=== PATIENT | male | born 1995 ===

== ENCOUNTER 2021-09-03 23:54 | Inpatient (IN) | payer SELFPAY ==
[2021-09-04 00:13] LABS: #Eosinphils 0.1 thou/uL (0.0-0.7); #Lymphocytes 1.5 thou/uL (1.20-3.40); #Monocytes 0.5 thou/uL (0.11-0.59); #Neutrophils 3.5 thou/uL (1.40-6.50); %Basophils 0.8 % (0.0-1.0); %Eosinophils 1.9 % (0.0-10.0); %Lymphocytes 26.3 % (21.0-51.0); %Monocytes 9.5 % (0.0-10.0); %Neutrophils 61.5 % (42.0-75.0); Hemoglobin 15.3 g/dL (14.0-18.0); Mean Corpuscular HGB CONC 32.7 g/dL (32.0-36.0); Mean Corpuscular Hemoglobin 31.3 pg (27.0-31.0); Mean Corpuscular Volume 95.6 fL (78.0-98.0); Mean Platelet Volume 7.1 fL (7.4-10.4); Platelet Count 197 thou/uL (130-400); RBC Distribution Width 11.7 % (11.5-14.5); Red Blood Cell (RBC) Count 4.89 mill/uL (4.70-6.10); White Blood Cell (WBC) Count 5.6 thou/uL (4.8-10.8)
[2021-09-04] MEDS ORDERED: Ondansetron PF 4 MG/2 ML Vial IVP PRN (00:25)
[2021-09-04] MEDS ORDERED: Morphine 2 MG/ML VIAL SLOW IVP STA (00:41)
[2021-09-04 00:42] LABS: ALT (SGPT) 12 U/L (8-55); AST (SGOT) 16 U/L (5-34); Albumin 4.5 g/dL (3.5-5.0); Alkaline Phosphatase 73 U/L (40-110); Anion Gap 15 mmol/L (10-20); BUN (Urea Nitrogen) 8 mg/dL (8.9-20.6); Bilirubin, Total 0.3 mg/dL (0.2-1.2); Calc. Creatinine Clearance 0 mL/min (70-130); Calcium 9.3 mg/dL (7.8-10.44); Carbon Dioxide 18 mmol/L (22-29); Chloride 110 mmol/L (98-107); Globulin 2.5 g/dL (2.4-3.5); Glucose 148 mg/dL (70-105); INR-International Normal Ratio 0.9; Potassium 3.7 mmol/L (3.5-5.1); Prothrombin Time 12.4 sec (12.0-14.7); Sodium 139 mmol/L (136-145)
[2021-09-04] MEDS ORDERED: Morphine 4 MG/ML VIAL ONE ×2 (00:42→02:58)
[2021-09-04] MEDS ORDERED: Acetaminophen 500 MG TAB PO PRN (00:44)
[2021-09-04] MEDS ORDERED: traMADol HCl 50 MG TAB PO PRN (00:44)
[2021-09-04] MEDS ORDERED: Lidocaine 1% (PF) 30 ML VIAL ONE (00:45)
[2021-09-04 00:53] LABS: PTT 22.6 sec (22.9-36.1)
[2021-09-04] MEDS ORDERED: Sodium Chloride 0.9% 1,000 ML IV SCH ×2 (01:00→04:00)
[2021-09-04] MEDS ORDERED: Fentanyl 100 MCG/2 ML VIAL ONE (01:05)
[2021-09-04] MEDS ORDERED: Midazolam HCl 2 mg/2 ml Vial ONE (01:05)
[2021-09-04 01:23] LABS: Bilirubin Negative (Negative); Blood, Urine Negative (Negative); Clarity Clear (Clear); Glucose, Urine (Dipstick) Normal (Negative); Ketone, Urine Negative (Negative); Leukocyte Negative Leu/uL (Negative); Nitrite Negative (Negative); Protein, Urine (Dipstick) Negative (Neg-Trace); Specific Gravity, Urine 1.024 (1.002-1.036); Urobilinogen Normal mg/dL (Less than 2)
[2021-09-04] MEDS ORDERED: Morphine 4 MG/ML VIAL SLOW IVP PRN (02:30)
[2021-09-04 03:11] LABS: SARS-CoV-2 NAA Rapid Test Not Detected (NotDetected)
[2021-09-04] MEDS: Cyclobenzaprine 10 MG TAB PO PRN ×2 (03:51→04:15)
[2021-09-04 04:06] LABS: #Lymphocytes 0.7 thou/uL (1.20-3.40); #Monocytes 1.1 thou/uL (0.11-0.59); #Neutrophils 9.3 thou/uL (1.40-6.50); %Basophils 0.1 % (0.0-1.0); %Eosinophils 0.3 % (0.0-10.0); %Lymphocytes 6.3 % (21.0-51.0); %Monocytes 9.7 % (0.0-10.0); %Neutrophils 83.6 % (42.0-75.0); Hemoglobin 13.9 g/dL (14.0-18.0); Mean Corpuscular HGB CONC 33.4 g/dL (32.0-36.0); Mean Corpuscular Hemoglobin 31.9 pg (27.0-31.0); Mean Corpuscular Volume 95.5 fL (78.0-98.0); Mean Platelet Volume 6.8 fL (7.4-10.4); Platelet Count 165 thou/uL (130-400); RBC Distribution Width 11.7 % (11.5-14.5); Red Blood Cell (RBC) Count 4.35 mill/uL (4.70-6.10); White Blood Cell (WBC) Count 11.2 thou/uL (4.8-10.8)
[2021-09-04 04:25] LABS: Lactic Acid 1.6 mmol/L (0.5-2.2)
[2021-09-04 04:29] LABS: Anion Gap 13 mmol/L (10-20); BUN (Urea Nitrogen) 7 mg/dL (8.9-20.6); Calc. Creatinine Clearance 135 mL/min (70-130); Calcium 8.4 mg/dL (7.8-10.44); Carbon Dioxide 18 mmol/L (22-29); Chloride 112 mmol/L (98-107); Glucose 107 mg/dL (70-105); Magnesium 1.8 mg/dL (1.6-2.6); Phosphorus 2.7 mg/dL (2.3-4.7); Potassium 3.9 mmol/L (3.5-5.1); Sodium 139 mmol/L (136-145)
[2021-09-04] MEDS ORDERED: traMADol HCl 50 MG TAB PO SCH (06:00)
[2021-09-04 07:31] LABS: #Lymphocytes 0.7 thou/uL (1.20-3.40); #Neutrophils 6.9 thou/uL (1.40-6.50); %Basophils 0.1 % (0.0-1.0); %Eosinophils 0.5 % (0.0-10.0); %Lymphocytes 8.6 % (21.0-51.0); %Monocytes 11.4 % (0.0-10.0); %Neutrophils 79.4 % (42.0-75.0); Hemoglobin 13.7 g/dL (14.0-18.0); Mean Corpuscular HGB CONC 34.2 g/dL (32.0-36.0); Mean Corpuscular Hemoglobin 32.8 pg (27.0-31.0); Mean Corpuscular Volume 95.9 fL (78.0-98.0); Platelet Count 142 thou/uL (130-400); RBC Distribution Width 11.7 % (11.5-14.5); Red Blood Cell (RBC) Count 4.16 mill/uL (4.70-6.10); White Blood Cell (WBC) Count 8.7 thou/uL (4.8-10.8)
[2021-09-04] MEDS ORDERED: FLU VACC QS2021-22(6MOS UP)/PF 60 MCG/0.5 ML SYRINGE IM ONE (09:00)
[2021-09-04] MEDS ORDERED: Ketorolac Tromethamine 30 MG/ML VIAL IVP SCH (09:45)
[2021-09-04] MEDS: Acetaminophen 500 MG TAB PO SCH ×3 (10:43→21:13)
[2021-09-04] MEDS: Famotidine 20 MG TAB PO SCH ×2 (10:46→21:13)
[2021-09-04] MEDS: Polyethylene Glycol 3350 17 GM Packet PO SCH (10:49)
[2021-09-04] MEDS: Senokot S 8.6-50 MG TAB PO SCH ×2 (10:49→21:13)
[2021-09-04] MEDS ORDERED: Iopamidol 370 76% 100 ML VIAL ONE (10:58)
[2021-09-04] MEDS ORDERED: Lidocaine 1%/Epinephrine 1:100K 10 ML VIAL IJ SCH (11:21)
[2021-09-04] MEDS: traMADol HCl 50 MG TAB PO SCH ×3 (12:43→23:53)
[2021-09-04 14:04] LABS: #Eosinphils 0.1 thou/uL (0.0-0.7); #Monocytes 1.1 thou/uL (0.11-0.59); #Neutrophils 5.5 thou/uL (1.40-6.50); %Basophils 0.4 % (0.0-1.0); %Lymphocytes 13.5 % (21.0-51.0); %Neutrophils 71.1 % (42.0-75.0); Hemoglobin 13.5 g/dL (14.0-18.0); Mean Corpuscular HGB CONC 33.3 g/dL (32.0-36.0); Mean Corpuscular Hemoglobin 32.3 pg (27.0-31.0); Mean Corpuscular Volume 97.3 fL (78.0-98.0); Mean Platelet Volume 6.9 fL (7.4-10.4); Platelet Count 136 thou/uL (130-400); RBC Distribution Width 11.9 % (11.5-14.5); Red Blood Cell (RBC) Count 4.16 mill/uL (4.70-6.10); White Blood Cell (WBC) Count 7.7 thou/uL (4.8-10.8)
[2021-09-04] MEDS: CEFAZOLIN 2 GM, Admixture Fee 1 EACH in Sodium Chloride 0.9% 100 ML IVPB SCH ×2 (14:33→21:14)
[2021-09-04] MEDS: Nicotine 7 MG PATCH TD SCH (19:43)
[2021-09-05] MEDS: Acetaminophen 500 MG TAB PO SCH ×4 (03:24→21:31)
[2021-09-05 04:19] LABS: #Eosinphils 0.1 thou/uL (0.0-0.7); #Lymphocytes 0.9 thou/uL (1.20-3.40); #Monocytes 0.8 thou/uL (0.11-0.59); #Neutrophils 4.7 thou/uL (1.40-6.50); %Basophils 0.2 % (0.0-1.0); %Eosinophils 1.6 % (0.0-10.0); %Lymphocytes 13.9 % (21.0-51.0); %Monocytes 11.8 % (0.0-10.0); %Neutrophils 72.4 % (42.0-75.0); Hemoglobin 12.9 g/dL (14.0-18.0); Mean Corpuscular HGB CONC 35.2 g/dL (32.0-36.0); Mean Corpuscular Hemoglobin 34.4 pg (27.0-31.0); Mean Corpuscular Volume 97.7 fL (78.0-98.0); Mean Platelet Volume 7.3 fL (7.4-10.4); Platelet Count 129 thou/uL (130-400); RBC Distribution Width 11.9 % (11.5-14.5); Red Blood Cell (RBC) Count 3.76 mill/uL (4.70-6.10); White Blood Cell (WBC) Count 6.5 thou/uL (4.8-10.8)
[2021-09-05] MEDS: traMADol HCl 50 MG TAB PO SCH ×4 (05:09→23:10)
[2021-09-05] MEDS: CEFAZOLIN 2 GM, Admixture Fee 1 EACH in Sodium Chloride 0.9% 100 ML IVPB SCH (05:10)
[2021-09-05] MEDS: Famotidine 20 MG TAB PO SCH ×2 (09:51→21:31)
[2021-09-05] MEDS: Senokot S 8.6-50 MG TAB PO SCH ×2 (09:55→21:31)
[2021-09-05] MEDS: Polyethylene Glycol 3350 17 GM Packet PO SCH (09:55)
[2021-09-05] MEDS: Nicotine 7 MG PATCH TD SCH (17:25)
[2021-09-06] MEDS: Acetaminophen 500 MG TAB PO SCH ×2 (04:42→09:15)
[2021-09-06 04:44] VITALS: BMI 24.2
[2021-09-06] MEDS: traMADol HCl 50 MG TAB PO SCH ×2 (05:16→12:00)
[2021-09-06 05:34] LABS: #Eosinphils 0.1 thou/uL (0.0-0.7); #Lymphocytes 0.7 thou/uL (1.20-3.40); #Monocytes 0.8 thou/uL (0.11-0.59); #Neutrophils 4.4 thou/uL (1.40-6.50); %Basophils 0.1 % (0.0-1.0); %Eosinophils 2.2 % (0.0-10.0); %Lymphocytes 11.6 % (21.0-51.0); %Monocytes 12.9 % (0.0-10.0); %Neutrophils 73.1 % (42.0-75.0); Hemoglobin 11.5 g/dL (14.0-18.0); Mean Corpuscular HGB CONC 32.3 g/dL (32.0-36.0); Mean Corpuscular Hemoglobin 31.2 pg (27.0-31.0); Mean Corpuscular Volume 96.8 fL (78.0-98.0); Mean Platelet Volume 6.7 fL (7.4-10.4); Platelet Count 135 thou/uL (130-400); RBC Distribution Width 11.7 % (11.5-14.5); Red Blood Cell (RBC) Count 3.68 mill/uL (4.70-6.10); White Blood Cell (WBC) Count 6.1 thou/uL (4.8-10.8)
[2021-09-06 08:04] VITALS: TEMP 97.6
[2021-09-06] MEDS: Senokot S 8.6-50 MG TAB PO SCH (09:05)
[2021-09-06] MEDS: Polyethylene Glycol 3350 17 GM Packet PO SCH (09:09)
[2021-09-06] MEDS: Famotidine 20 MG TAB PO SCH (09:09)
[2021-09-06 12:11] VITALS: BP 119/76
== END 2021-09-06 17:05 | disposition home or self-care (01) | DRG 816 ==
LOC: ERS 23:54 → SDC/OP 09-04 01:09 → CCU 09-04 03:31 → SURG B 09-05 16:01
PROVIDERS: ADMIT Surgery; ATTEND Surgery
PROC: B4101ZZ Fluoroscopy of Abdominal Aorta using Low Osmolar Contrast (ICD-10-PCS; principal; 2021-09-04)
PROC: B41JZZZ Fluoroscopy of Other Lower Arteries (ICD-10-PCS; 2021-09-04)
DX: S36.039A Unspecified laceration of spleen, initial encounter (principal); Z20.822 Contact with and (suspected) exposure to COVID-19; X99.9XXA Assault by unspecified sharp object, initial encounter; Z88.5 Allergy status to narcotic agent; Z88.1 Allergy status to other antibiotic agents; Z28.311 Partially vaccinated for COVID-19
CPT/HCPCS: 36415; 71045; 71260; 74177; 75625; 80053; 81003; 83605; 83735; 84100; 85025; 85610; 85730; 86850; 86900; 86901; 90471; 96374; 96375; 99152; 99153; C1769; G0390; J0690; J1885; J2001; J2250; J2270; J3010; J3490; J7050; Q9967; U0002